=== PATIENT | female | born 1990 | race Caucasian/White ===

== ENCOUNTER 2017-06-22 04:22 | Emergency (ER) | payer OTHER ==
[~2017-06-22] VITALS: Ht 160 cm; Wt 92.5 kg
[~2017-06-22 04:22] MED LIST: ENDOCET 5-3251 EACH PO; FLINTSTONES COM18 MG PO; IBUPROFEN800 MG PO; MOTRIN800 MG PO; PERCOCET 5/31 TABLET PO
[2017-06-22 05:42] LABS: HEMATOCRIT 33.4 % (36.0-46.0); MCH 28.4 PG (29.0-34.0); MCHC 32.9 G/DL (30.0-36.0); MCV 86.3 FL (83-99); MEAN PLAT.VOLUME 10.3 uM^3 (9.5-12.4); PLATELET COUNT 234 K/uL (156-360); RBC DIS.WIDTH-CV 13.5 % (11.8-14.6); RED BLOOD COUNT 3.87 M/uL (3.80-5.20); WHITE BLOOD COUNT 8.6 K/uL (4.1-10.2)
[2017-06-22 05:45] LABS: CHLORIDE 108 mEq/L (99-109); POTASSIUM 3.5 mEq/L (3.7-5.4); SODIUM 137 mEq/L (136-147)
[2017-06-22 05:46] LABS: GLUCOSE 91 mg/dL (70-99)
[2017-06-22 05:48] LABS: ANION GAP 10 MEQ/L (2-14)
[2017-06-22 05:50] LABS: GFR ESTIMATE (CALCULATED) > 59 mL/min/
[2017-06-22 05:51] LABS: UREA NITROGEN (BUN) 6 mg/dL (9-23)
[2017-06-22 05:57] LABS: TROP-I INTERPRETATION NEGATIVE; TROPONIN-I < 0.01 ng/mL (0.0-0.30)
[2017-06-22 14:13] VITALS: BP 131/81
== END 2017-06-22 14:13 | disposition home or self-care (01) ==
LOC: EME 04:22
PROVIDERS: Emergency Medicine
DX: O26.892 Other specified pregnancy related conditions, second trimester (principal); R07.89 Other chest pain; R07.81 Pleurodynia; R05 Cough; R79.1 Abnormal coagulation profile; Z3A.23 23 weeks gestation of pregnancy
CPT/HCPCS: 71275; 80048; 84484; 85027; 85379; 93005; 99281; 99284; J7030

== ENCOUNTER 2017-10-14 06:54 | Inpatient (IN) | payer OTHER ==
[2017-10-14] VITALS (22 sets, daily range): BP systolic 121–159; BP diastolic 74–94
[2017-10-14 09:21] LABS: EOSINOPHIL (%) 0.3 % (0-5); HEMATOCRIT 33.2 % (36.0-46.0); IMMATURE GRANULOCYTE (%) 0.4 % (0.0-0.7); INSTRUMENT ABS NEUTROPHIL CT 6.3 K/uL; LYMPHOCYTE COUNT 2.1 K/uL (1.0-2.8); MCHC 32.2 G/DL (30.0-36.0); MCV 86.9 FL (83-99); MEAN PLAT.VOLUME 11.1 uM^3 (9.5-12.4); MONOCYTE (%) 6.6 % (3-12); MONOCYTE COUNT 0.6 K/uL (0-0.8); NEUTROPHIL COUNT 6.3 K/uL (1.8-6.4); PLATELET COUNT 193 K/uL (156-360); RBC DIS.WIDTH-CV 14.1 % (11.8-14.6); RED BLOOD COUNT 3.82 M/uL (3.80-5.20); WHITE BLOOD COUNT 9.1 K/uL (4.1-10.2)
[2017-10-14] MEDS ORDERED: IBUPROFEN800 MG PO (15:10)
[2017-10-15 03:50] VITALS: BP 126/76
[2017-10-15 07:17] VITALS: BP 141/91
== END 2017-10-15 18:30 | disposition home or self-care (01) | DRG 775 ==
LOC: LDRP-OP 06:54 → 2WEST 06:57 → LDRP-OP 08:52 → 2WEST 14:50 → LDRP-OP 11-14 09:07
PROVIDERS: Advanced Practice Midwife
PROC: 3E0R3BZ Introduction of Anesthetic Agent into Spinal Canal, Percutaneous Approach (ICD-10-PCS; principal; 2017-10-14)
PROC: 10907ZC Drainage of Amniotic Fluid, Therapeutic from Products of Conception, Via Natural or Artificial Opening (ICD-10-PCS; principal; 2017-10-14)
PROC: 10E0XZZ Delivery of Products of Conception, External Approach (ICD-10-PCS; principal; 2017-10-14)
PROC: 3E0P3VZ Introduction of Hormone into Female Reproductive, Percutaneous Approach (ICD-10-PCS; principal; 2017-10-14)
PROC: 00HU33Z Insertion of Infusion Device into Spinal Canal, Percutaneous Approach (ICD-10-PCS; principal; 2017-10-14)
DX: O99.214 Obesity complicating childbirth (principal); E66.9 Obesity, unspecified; Z3A.39 39 weeks gestation of pregnancy; Z37.0 Single live birth
CPT/HCPCS: 85025; C1755; J3010; J7120